=== PATIENT | male | born 1940 | race Caucasian/White ===

== ENCOUNTER 2016-12-19 21:49 | Inpatient (IN) | payer OTHER, MEDICARE ==
[~2016-12-19] VITALS: Ht 167.6 cm; Wt 77.0 kg
--- NOTE | 2016-12-19 22:03 | NUR ---
PATIENT SEEN WITH COMPLAINT OF LEFT HIP PAIN, POST A FALL. PATIENT HAD SOME BLEEDING FROM THE LOWER LIP. A/O . DENIES ANY ALOC. PATIENT IS WAIITNF FOR MD EVALUATION.
--- NOTE | 2016-12-19 23:25 | NUR ---
XRAY AT BEDSIDE
[2016-12-20] VITALS (8 sets, daily range): BP systolic 109–154; BP diastolic 63–82; Ht 167.6 cm; Wt 77.0 kg
[2016-12-20 00:12] LABS: BASOPHIL % 0.1 % (0-2); PLATELET COUNT 199 x10^3mcL (130-400)
--- NOTE | 2016-12-20 00:13 | NUR ---
1CM LAC NOTED TO PROXIMAL TO LOWER LIP.
[2016-12-20 00:20] LABS: CALCIUM 8.9 mg/dL (8.5-10.1); CARBON DIOXIDE 32.1 mmol/L (21-32); CHLORIDE SERUM 107 mmol/L (98-107); CREATININE SERUM 1.2 mg/dL (0.7-1.3); GLUCOSE SERUM 110 mg/dL (74-106); SODIUM SERUM 143 mmol/L (136-145)
[2016-12-20 00:22] LABS: RED CELL DISTRIBUTION WIDTH 14.6 % (11.5-14.5)
[2016-12-20 00:25] LABS: ALBUMIN 3.5 g/dL (3.4-5.0); ALKALINE PHOSPHATASE 75 U/L (46-116); ALT/SGPT 20 U/L (16-63); AST/SGOT 15 U/L (15-37); BILIRUBIN TOTAL 0.3 mg/dL (0.20-1.00); TOTAL PROTEIN, SERUM 7.1 g/dL (6.4-8.2)
--- NOTE | 2016-12-20 01:52 | NUR ---
REPORT GIVEN TO IRAIS ANDUJAR TO ASSUME CARE OF PT.
--- NOTE | 2016-12-20 02:29 | NUR ---
RECEIVED FRM ED,PUT IN ROOM 221B AND MADE COMFORTABLE.SETTLED DOWN IN BED,PATIENT HAS FX OF L HIP.PATIENT CAME IN WITH ADMIT DX OF L HIP FRACTURE.FELL AT STAGE OF ORIENTAL ORTHODOX.HAS TELE 18 SR.SON AT BEDSIDE AND SUPPORTIVE OF CARE.DR ENGLAND AT BEDSIDE,INTERVIWEING PATEINT,SET UP BUCKS TRACTION 10 LBS AND OVERHEAD TRAPEZE.PATIENT HAS NON ADHERENT DRESSING ON R PINKIE TOE.ALSO HAS SUTURE ON HIS MOUTH,HARDLY SEE,SOME BLEEDING NOTED.NS AT 100 CC/ HOUR.WILL FOLLOW UP ADMIT ORDER.CALL LITE IN REACH.
--- NOTE | 2016-12-20 02:30 | NUR ---
PT TRANSFERRED TO TELE BED 221B VIA [facility] WITH PRATIMA HORNE AND EMT BIRDIE AT PT SIDE. PT ON CM, A&OX4, RESP EVEN AND UNLABORED, TRANFERRED WITHOUT INCIDENCE.
[2016-12-20 02:41] LABS: microscopic required? NO
[2016-12-20 02:53] LABS: UA SPECIFIC GRAVITY >=1.030 (1.005-1.035); urine erythrocyte NEGATIVE (NEGATIVE)
[2016-12-20 03:16] LABS: T3 TOTAL 0.93 ng/mL
--- NOTE | 2016-12-20 03:23 | NUR ---
PATIENT DRY BLOOD ON HIS MOUTH,WANTED IT CLEAN,ALSO HE WANTS SLEEPING PILL,WILL CHECK ORDER.CALL LITE IN REACH.
[2016-12-20 03:27] LABS: CHOLESTEROL/HDL RATIO 4.7; MAGNESIUM 2.2 mg/dL (1.8-2.4); PHOSPHOROUS 2.3 mg/dL (2.5-4.9)
[2016-12-20 03:33] LABS: FREE T4 1.07 ng/dL (0.76-1.46); FREE THYROXINE INDEX 2.4 ug/dL (1.4-4.5); T4(THYROXINE) 6.3 ug/dL (4.7-13.3)
--- NOTE | 2016-12-20 03:38 | NUR ---
PATIENT AMBIEN STILL UNVERIFIED.WANTING SLEEPING PILL.
--- NOTE | 2016-12-20 06:13 | NUR ---
PATIENT SLEEPING STILL.I AND O MEASURED.PATIET NOT NPO,HAS DIET FOR THIS AM.WILL ENDORSE TO NEXT SHIFT.
--- NOTE | 2016-12-20 07:15 | NUR ---
PT REST ON BED, AWAKE, ALERT, ORIENTED X 3. PT NO COMPLAIN OF PAIN AT THIS TIME. PT BREATHING ON RA, EVEN, UNLABORED. 5LB BUCKS TRACTION ON LEFT LEG. OVERHEAD TRAPEZE SET UP. DIAZ IN PLACE, DRAINING FREELY VIA GRAVITY, URINE COLOR SOBIA. IV SITE PATENT, INTACT. IVF INFUSING WELL.
--- NOTE | 2016-12-20 14:25 | NUR ---
PT'S DIAZ IS LEAKING, PT STATED HE IS ABLE TO URINATE WITHOUT PROBLEM. MADE DR. BLACKBURN AWARE AND ORDER TO DC DIAZ. REMOVED DIAZ PER ORDER. PT URINATED SMALL AMOUT URINE RIGHT AFTER DIAZ REMOVAL. WILL CONTINUE TO MONITOR.
--- NOTE | 2016-12-20 18:57 | NUR ---
PT IS EATING DINNER WITH PT'S AT BED SIDE. PT NO COMPLAIN OF PAIN AT THIS TIME. PT BREATHING ON RA, EVEN, UNLABORED. 5LB BUCKS TRACTION MAITAINED ALIGMENT. IV SITE PATENT, INTACT. IVF INFUSING WELL.
--- NOTE | 2016-12-20 19:20 | NUR ---
REC'D PT FROM DAY NURSE. AT BEDSIDE. PT LAYING IN BED. AAOX4, SPEECH CLEAR. NO SIGNS OF DISTRESS NOTED. BREATHING EVEN/UNLABORED ON RA. ON TELE 18. DENIES CP, DIZZINESS, OR PALPITATIONS. DENIES RESP DISTRESS OR SOB. BREATHING EVEN/UNLABORED ON RA. NO EDEMA NOTED. DENIES ABD PAIN, TENDERNESS, OR N/V. VOIDING FREELY USING URINAL. BUCKS TRACTION IN PLACE WITH SOFT BOOT TO LLE- 5LB FREE HANGING WEIGHT. TRAPEZE ABOVE. SUTURE TO BOTTOM LIP/CHIN. DENIES PAIN AT THIS TIME, ONLY HAS PAIN WITH MOVEMENT. ICE PACKS GIVEN FOR COMFORT "TO KEEP COOL." CALL LIGHT WITHIN REACH, BED AT LOWEST POSITION. WILL CONTINUE TO MONITOR.
--- NOTE | 2016-12-20 21:26 | NUR ---
PT C/O LLE PAIN 6/10 AND INSOMNIA. NORCO AND AMBIEN GIVEN PER ORDER. WILL MONITOR FOR RELIEF.
--- NOTE | 2016-12-21 02:12 | NUR ---
PT RESTING IN BED WITH EYES CLOSED. AT BEDSIDE. NO SIGNS OF DISTRESS NOTED. BREATHING EVEN/UNLABORED ON RA. LAYING SUPINE. BUCKS TRACTION IN PLACE. 5LB FREE HANGING WEIGHT. CALL LIGHT WITHIN REACH, BED AT LOWEST POSITION. WILL CONTINUE TO MONITOR.
[2016-12-21 06:25] VITALS: BP 148/80
--- NOTE | 2016-12-21 06:25 | NUR ---
PT AWAKE, RESTING IN BED. BUCKS TRACTION IN PLACE. LLE SOFT BOOT WITH 5LB FREE HANGING WEIGHT. CHG BATH COMPLETED. REPORTS SOME DISCOMFORT TO LLE BUT TOLERABLE, DENIED PAIN MEDS. NO RESP DISTRESS OR SOB. BREATHING EVEN/UNLABORED ON RA. BS 98, NO COVERAGE. ORIF TODAY @ 0730. CONSENT SIGNED AND CHECKLIST COMPLETED. PT HAS BEEN NPO SINCE MIDNIGHT. CALL LIGHT WITHIN REACH, BED AT LOWEST POSITION. WILL ENDORSE TO DAY NURSE.
--- NOTE | 2016-12-21 07:10 | NUR ---
REPORT GIVEN TO SHALOM FROM OR.
[2016-12-21 07:21] LABS: PLATELET COUNT 151 x10^3mcL (130-400); RED CELL DISTRIBUTION WIDTH 14.5 % (11.5-14.5)
--- NOTE | 2016-12-21 07:25 | NUR ---
RECEIVED APTEINT A/A/OX3. CLEAR SPEECH. TELE#18 = SBSR; HR = 57. DENIED CHEST PAIN. NO RESP DISTRESS ON RA. NPO FOR SX THIS AM. BUCKS TACTION 5LBS TO LLE. IVHL'D TO LAC INTACT. NO C/O PAIN NOW. SKIN LACERATION 1.5CM WITH SUTURES TO LOWER LIP. EMOTIONAL SUPPORT TEACHER. FAMILY AT BED SIDE.
--- NOTE | 2016-12-21 07:25 | NUR ---
HEPLOCKED PT. OR TEAM IN TO TAKE PT DOWN. REPORT GIVEN TO KHOA ANDUJAR.
--- NOTE | 2016-12-21 07:30 | NUR ---
WENT TO OR WITH OR NURSE.
[2016-12-21 07:35] LABS: CARBON DIOXIDE 25.7 mmol/L (21-32); CHLORIDE SERUM 104 mmol/L (98-107); GLUCOSE SERUM 95 mg/dL (74-106); PHOSPHOROUS 2.9 mg/dL (2.5-4.9); POTASSIUM SERUM 4.3 mmol/L (3.5-5.1); SODIUM SERUM 137 mmol/L (136-145)
[2016-12-21 09:30] LABS: BAND NEUTROPHIL 0 % (0-10); BASOPHIL 0 % (0-2); MONOCYTE 8 % (0-7); SEGMENTED NEUTROPHILS 74 % (37-75)
--- NOTE | 2016-12-21 10:16 | NUR ---
RECEIVED APTIENT FROM OR, S/P OF ORIF L HIP FRACTURE. DRSG TO LT HIP X2, BOTH DRY/INTACT. SEROSANGUINOUS OOZING TO UPPER ONE SEEN. V/S = 97.5-58-16-139/70; O2 SAT 98% ON 2L VIA N/C. DENIED PAIN. IVF OF NS 100CC/HR RESUMED. IV SITE TO LAC INTACT. SON AT BED SIDE.
[2016-12-21 10:18] VITALS: BP 131/70
[2016-12-21 13:40] VITALS: BP 159/80
--- NOTE | 2016-12-21 15:00 | NUR ---
VOID POST -OP VIA URINAL. 300CC COLLECTED.
--- NOTE | 2016-12-21 15:22 | NUR ---
NORCO 7.5/325 PO GIVEN FOR INCISIONAL PAIN ON 10/25.
[2016-12-21 17:31] VITALS: BP 140/54
--- NOTE | 2016-12-21 18:59 | NUR ---
TOLERATED [facility] VEGETARIAN DIET. USE I.S. AT BED SIDE. VOID FREELY. DENIED PAIN NOW. ENDORSED CARE TO [facility] NURSE.
--- NOTE | 2016-12-21 19:51 | NUR ---
THE PT IS AAOX4. THE IS AT BEDSIDE. TELE 18, NSR, WITH A HR OF 70. LUNG SOUNDS ARE CTA ON RA. THE PT DENIES ANY PAIN AT THIS TIME. THE ABD IS SOFT, ROUND, NON-TENDER. THE LAST BM WAS 8-5-17. PT IS INFUSING 60 ML/HR NS. THE BED IS IN THE LOWEST POSITION AND THE CALL LIGHT IS WITHIN REACH. WILL CONTINUE TO MONITOR.
--- NOTE | 2016-12-21 20:18 | NUR ---
TALKED TO DR. IQBAL ABOUT IV DRIP RATE. AWAITING ORDERS.
--- NOTE | 2016-12-21 20:43 | NUR ---
PT REQUESTED PAIN MEDICATION AND SLEEP AID TO BE GIVEN IN CONJUNCTION AT 2200.
[2016-12-21 21:08] VITALS: BP 149/71
--- NOTE | 2016-12-22 03:07 | NUR ---
PT IS RESTING COMFORTABLY. EVEN, UNLABORED BREATHING. BED IN LOWEST POSITION AND CALL LIGHT WITHIN REACH. WILL CONTINUE TO MONITOR.
--- NOTE | 2016-12-22 05:55 | NUR ---
ALL NEEDS HAVE BEEN MET THROUGHOUT THE NIGHT. THE BED IS IN THE LOWEST POSITION AND THE URINAL WAS EMPTIED FOR ANOTHER 200 ML. THE CALL LIGHT IS WITHIN REACH. WILL ENDORSE TO MORNING SHIFT.
[2016-12-22 06:19] VITALS: BP 137/86
[2016-12-22 06:21] LABS: CALCIUM 7.9 mg/dL (8.5-10.1); CHLORIDE SERUM 107 mmol/L (98-107); GLUCOSE SERUM 107 mg/dL (74-106); POTASSIUM SERUM 3.9 mmol/L (3.5-5.1); SODIUM SERUM 137 mmol/L (136-145)
[2016-12-22 06:47] LABS: PLATELET COUNT 133 x10^3mcL (130-400); RED CELL DISTRIBUTION WIDTH 14.4 % (11.5-14.5)
--- NOTE | 2016-12-22 07:35 | NUR ---
A/O X4. CLEAR SPEECH. FOLLOW COMMANDS. ON TEL 18 HR 60. RADIAL AND PEDAL PULSES PALPALBE. NO SWELLING NOTED. <3 SECS CAP REFILL. ON HEPARIN SQ. ON RA SAT 97%. NO NVD. VOIDING ADEQUATELY. S/P LEFT HIP ORIF. DRESSING CDI. NO ACTIVE S/S OF BLEEDING. DENIES PAIN AT THIS TIME. IV AMADEO INTACT ON LAC. NS INFUSING WELL AT 60 ML/HR. WILL CONTINUE TO MONITOR. CALL LIGHT WITHIN REACH.
--- NOTE | 2016-12-22 08:15 | NUR ---
DR LUCAS AT BEDSIDE.
--- NOTE | 2016-12-22 08:30 | NUR ---
REPORTED TO DR SNYDER REGARDING Pt REFUSING TO TAKE LISINOPRIL MEDICATION DUE TO Pt TAKING HOME MEDICATION CALLED MARK.
--- NOTE | 2016-12-22 08:45 | NUR ---
COMPLAINS OF SHARP LEFT HIP PAIN 10/25. NORCO GIVEN. WILL CONTINUE TO MONITOR.
--- NOTE | 2016-12-22 08:47 | NUR ---
DR LUCAS AT BEDSIDE EDUCATED Pt ON USING THE INCENTIVE SPIROMETRY.
[2016-12-22 09:54] VITALS: BP 148/63
[2016-12-22 10:56] LABS: BAND NEUTROPHIL 0 % (0-10); BASOPHIL 1 % (0-2); MONOCYTE 7 % (0-7); PLATELET MORPHOLOGY PLATELETS DECREASED; SEGMENTED NEUTROPHILS 84 % (37-75); rbc morphology (normal/abnorm) ABNORMAL (NORMAL)
--- NOTE | 2016-12-22 11:11 | NUR ---
IV INSERTED TO LFA GAUGE 22. X1 ATTEMPT. Pt TOLERATED WELL.
--- NOTE | 2016-12-22 16:17 | NUR ---
TEMP AT 101.7 , TYLENOL GIVEN. WILL CONTINUE TO MONITOR.
--- NOTE | 2016-12-22 16:37 | NUR ---
PHYSICAL THERAPY DAILY NOTES CO-SIGN All documentation done by the Production Team Leader for 12/22/16 has been reviewed. I agree with the documentation. Reviewed/Co-Signed by: Mere Henry PT Documentation Done by:SANDI HERNANDEZ AVIONICS ELECTRONICS TECHNICIAN POC REVIEWED W/ [employer] ELECTRONICS TECHNICIAN; WILL BENEFIT W/ P.T. AFTER ACUTE STAY, FWW FOR HOME USE.
[2016-12-22 17:27] VITALS: BP 142/64
--- NOTE | 2016-12-22 17:38 | NUR ---
TEMP RECHECKED. TEMP AT THIS TIME IS AT 100.5 WILL CONTINUE TO MONITOR.
[2016-12-22 19:30] VITALS: BP 128/78
--- NOTE | 2016-12-22 19:30 | NUR ---
RECEIVED PATIENT FROM AM [id number]. PATIENT A/OX4 ABLE TO VERBALIZE NEEDS. S/P ORIF TO LEFT HIP, DRESSING CDI, NO BLEEDING OR INFECTION NOTED. TRAPEZE ABOVE HEAD. IS DEVICE BY BEDSIDE AND ENCOURAGED USE. FAMILY BY BEDSIDE. TELE 18 SR WITH DEPRESSED T WAVES. IVF INFUSING TO LAC AT 60ML/HR NS, NO INFILTRATION NOTED. PATIENT VERBALIZED PATIENT TO LEFT HIP SITE 10/25. WILL ADMINISTER PAIN MEDICATION. CALL LIGHT WITHIN REACH.
--- NOTE | 2016-12-22 20:00 | NUR ---
PATIENT C/O SORE THROAT AND MUCUS. INFORMED DR. BELL. RECEIVED ORDERS. PROVIDED PATIENT WITH ICE CHIPS, PATIENT REQUESTING FOR SALT AND WATER FOR GARGLE. PROVIDED PATIENT WITH SALT WATER AND ASKED IF PATIENT STILL WANTED THE ROBITUSSIN FOR COUGH AND SORE THROAT, PATIENT STATED THAT HE WANTS TO WAIT UNTIL MORNING.
--- NOTE | 2016-12-23 00:21 | NUR ---
SAFETY ROUNDS MADE.PATIENT QUIETLY SLEEPING AT THIS TIME. NO S/SX OF DISTRESS NOTED. CALL LIGHT WITHIN REACH AND ALL OTHER SAFETY MEASURES IN PLACE.
[2016-12-23 05:45] VITALS: BP 157/69
[2016-12-23 05:50] LABS: CALCIUM 8.2 mg/dL (8.5-10.1); CHLORIDE SERUM 107 mmol/L (98-107); CREATININE SERUM 0.9 mg/dL (0.7-1.3); GLUCOSE SERUM 99 mg/dL (74-106); MAGNESIUM 2.1 mg/dL (1.8-2.4); PHOSPHOROUS 2.1 mg/dL (2.5-4.9); POTASSIUM SERUM 4.2 mmol/L (3.5-5.1); SODIUM SERUM 143 mmol/L (136-145)
[2016-12-23 06:17] LABS: BASOPHIL % 0.6 % (0-2); PLATELET COUNT 149 x10^3mcL (130-400); RED CELL DISTRIBUTION WIDTH 14.4 % (11.5-14.5)
--- NOTE | 2016-12-23 06:52 | NUR ---
PATIENT QUIETLY RESTING IN BED AT THIS TIME. DRESSING TO LEFT HIP CDI, NO INFECTION NOTED OR BLEEDING. PATIENT VERBALIZES PAIN BUT REFUSING PAIN MEDICATION AT THIS TIME DUE TO PATIENT WOULD LIKE TO HAVE PAIN MEDICATION PRIOR TO GETTING UP WITH PT TODAY. INFORMED PATIENT THAT HE HAS OTHER MEDICATIONS FOR PAIN ON BOARD BUT PATIENT RESISTS. CALL LIGHT WITHIN REACH.
--- NOTE | 2016-12-23 07:45 | NUR ---
PATIENT AOX3, ABLE TO MAKE NEEDS KNOWN AND FOLLOW COMMANDS. DENIES HEADACHE. TELE 18, DENIES CP/PALPITATION. LUNGS CTA, NO RESP DISTRESS NOTED ON RA. INCENTIVE SPIROMETER WITHIN REACH, REINFORCED AND UTILIZING CORRECTLY. PERIPHERAL PULSES PALPABLE, NO EDEMA NOTED. BOWEL SOUNDS ACTIVE, ADMITS TO PASSING GAS, NO BM YET, DENIES N/V. VOIDS FREELY. DRESSING NOTED TO LT HIP CDI, TRAPEZE IN PLACE, PATIENT POSITIONED TO LEFT SIDE AND CALLING FOR HELP TO REPOSITION FREQUENTLY AND NEEDED. PAIN INCREASING, REQUESTING FOR PAIN MEDICINE. IV ACCESS TO LAC RUNNING NS INFUSING WELL SITE WNL. CALL LIGHT WITHIN REACH.
[2016-12-23 07:52] VITALS: BP 158/71
--- NOTE | 2016-12-23 08:30 | NUR ---
NORCO GIVEN FOR PAIN TO LEFT HIP 11/24.
[2016-12-23 09:49] VITALS: BP 130/71
--- NOTE | 2016-12-23 10:00 | NUR ---
[employer] FACILITY ASSOCIATE AT BEDSIDE TO EVALUATE PATIENT.
--- NOTE | 2016-12-23 10:30 | NUR ---
PATIENT BED BATH PROVIDED, REPOSITIONED. DRESSING TO LEFT HIP INTACT WITH MILD SANGUINOUS SATURATION. WILL CHANGE DRESSING WHEN APPROPRIATE.
--- NOTE | 2016-12-23 11:40 | NUR ---
PATIENT AMBULATED WITH PHYSICAL THERAPISTS USING WALKER. PREMEDICATED WITH MORPHINE 2MG. STATES MILD LIGHT HEADEDNESS, DENIES DIZZINES. PATIENT NOW SITTING UP ON CHAIR, PT'S WILL AMBULATE PATIENT AGAIN AFTER LUNCH. PATIENT TOLERATED WELL. AT BEDSIDE.
--- NOTE | 2016-12-23 14:15 | NUR ---
PATIENT PREMEDICATED WITH NORCO AND AMBULATED IN HALLWAY WITH PHYSICAL THERAPISTS AND WALKER FROM CHAIR AND NOW BACK IN BED. TOLERATED WELL.
[2016-12-23 14:31] VITALS: BP 138/64
[2016-12-23 15:18] VITALS: BP 138/64
[2016-12-23] MEDS ORDERED: HEP5I SC (15:18)
[2016-12-23] MEDS ORDERED: LIPI10 PO (15:19)
[2016-12-23] MEDS ORDERED: APAP/HYDROCODON1 T13 PO (15:20)
[2016-12-23] MEDS ORDERED: COL100 PO (15:21)
--- NOTE | 2016-12-23 16:38 | NUR ---
PHYSICAL THERAPY DAILY NOTES CO-SIGN All documentation done by the Guide Dog Mobility Instructor for 12/23/16 has been reviewed. I agree with the documentation. Reviewed/Co-Signed by: Mere Henry PT Documentation Done by:OCTAVIO NGUYEN COMMERCIAL TRAILER TRUCK DRIVER POC REVIEWED W/ COMMERCIAL TRAILER TRUCK DRIVER; WILL BENEFIT W/ P.T. AFTER ACUTE STAY; PROGRESSING W/ GAIT ENDURANCE & FUNC MOB.
--- NOTE | 2016-12-23 18:00 | NUR ---
PICTURE TAKEN OF SURGICAL WOUND. SITE WITH 2 INCISIONS AND CLOSED WITH DIAMOND. ISLAND DRESSINGS APPLIED. NO REDNESS/SWELLING NOTED. NO DRAINAGE. DISCHARGE/TRANSFER INSTRUCTIONS GIVEN, PATIENT AND VERBALIZED UNDERSTANDING. IV DC'D CATH INTACT. TELE RETURNED TO TECH STATION. ALL BELONGINGS ACCOUNTED FOR AND TAKEN WITH . QUESTIONS ANSWERED. NO DISTRESS NOTED. LEAVING UNIT VIA [facility] BY SIMA.
== END 2016-12-23 18:00 | DRG 480 ==
LOC: ED 21:49 → DU 12-20 01:16
PROVIDERS: Emergency Medicine; Neuromusculoskeletal Medicine, Sports Medicine; Student in an Organized Health Care Education/Training Program; ADMIT Family Medicine
PROC: 0CQ1XZZ Repair Lower Lip, External Approach (ICD-10-PCS; 2016-12-20)
PROC: 0QS704Z Reposition Left Upper Femur with Internal Fixation Device, Open Approach (ICD-10-PCS; principal; 2016-12-21 07:30)
DX: S72.142A Displaced intertrochanteric fracture of left femur, initial encounter for closed fracture (principal); N17.0 Acute kidney failure with tubular necrosis; S01.511A Laceration without foreign body of lip, initial encounter; S91.114A Laceration without foreign body of right lesser toe(s) without damage to nail, initial encounter; I10 Essential (primary) hypertension; R73.03 Prediabetes; E83.39 Other disorders of phosphorus metabolism; N40.0 Benign prostatic hyperplasia without lower urinary tract symptoms; E78.5 Hyperlipidemia, unspecified; Z66 Do not resuscitate; Z68.27 Body mass index [BMI] 27.0-27.9, adult; E66.3 Overweight; W17.89XA Other fall from one level to another, initial encounter; Y92.39 Other specified sports and athletic area as the place of occurrence of the external cause; Y99.0 Civilian activity done for income or pay
CPT/HCPCS: 82962; 83880; 84439; 90715; 97110-GP; 97116-GP; 97530-GP; C1713; J0690; J1170; J1644; J2001; J2270; J2405; J2704; J3010; J3490; J7030; Q0092

== ENCOUNTER → 2017-02-24 | Outpatient (CLI) | payer OTHER, MEDICARE ==
[~2017-02-24] MED LIST: APAP/HYDROCODON1 T13 PO; COL100 PO; HEP5I SC; LIPI10 PO
== END | disposition home or self-care (01) ==
LOC: RD 12:04
DX: S72.092D Other fracture of head and neck of left femur, subsequent encounter for closed fracture with routine healing (principal); X58.XXXD Exposure to other specified factors, subsequent encounter

== ENCOUNTER → 2018-12-27 | Outpatient (CLI) | payer OTHER, MEDICARE | END | disposition home or self-care (01) | LOC: RD 13:06 | DX: S72.002D Fracture of unspecified part of neck of left femur, subsequent encounter for closed fracture with routine healing (principal); X58.XXXD Exposure to other specified factors, subsequent encounter ==